=== PATIENT | female | born 1960 | race Caucasian/White ===

== ENCOUNTER 2018-07-23 03:40 | Inpatient (IN) | payer OTHER ==
[~2018-07-23] VITALS: Ht 147.3 cm; Wt 70.3 kg
[2018-07-23 03:43] VITALS: BP 170/89
[2018-07-23] MEDS ORDERED: LISINOPRIL10 MG PO ×2 (03:59→07:23)
[2018-07-23] MEDS ORDERED: SYNTHROID125 MC1 PO (04:00)
[2018-07-23] MEDS ORDERED: COREG CR10 MG PO (04:01)
[2018-07-23] MEDS ORDERED: SIMVASTATIN10 MG PO (04:02)
[2018-07-23] MEDS ORDERED: RANITIDINE 150150 M1 PO (04:03)
[2018-07-23 04:10] LABS: ABSOLUTE BASOPHILS 0.1 thou/uL (0.0-0.2); ABSOLUTE EOSINOPHILS 0.4 thou/uL (0.0-0.7); ABSOLUTE LYMPHOCYTES 2.4 thou/uL (0.8-5.3); ABSOLUTE MONOCYTES 1.8 thou/uL (0.0-1.2); ABSOLUTE NEUTROPHILS 10.5 thou/uL (1.6-8.1); BASOPHILS 0.6 %; EOSINOPHILS 2.4 %; HEMATOCRIT 37.7 % (37.0-47.0); HEMOGLOBIN 12.5 gm/dL (12.0-15.0); LYMPHOCYTES 15.8 %; MCH 32.7 pg (26.0-34.0); MCHC 33.1 g/dL (28.0-37.0); MCV 98.9 fL (80.0-100.0); MONOCYTES 11.9 %; MPV 7.4 fl. (7.2-11.1); NUCLEATED RBCS 0 /100WBC; PLATELET COUNT* 320 thou/uL (150-400); POLYS 69.3 %; RBC 3.81 mil/uL (4.20-5.00); RDW-CV 13.1 % (10.5-14.5); WBC 15.1 thou/uL (4.0-11.0)
[2018-07-23 04:19] LABS: CALCIUM 9.1 mg/dL (8.5-10.1); CREATININE 1.1 mg/dL (0.6-1.3); POTASSIUM 3.4 mmol/L (3.5-5.1)
[2018-07-23 04:24] LABS: ALBUMIN 3.1 g/dL (3.4-5.0); TOTAL BILIRUBIN 0.2 mg/dL (<0.1-1.0); TOTAL PROTEIN 7.6 g/dL (6.4-8.2)
[2018-07-23 05:27] LABS: URINE BILIRUBIN NEGATIVE (Negative); URINE BLOOD NEGATIVE (Negative); URINE CLARITY CLEAR; URINE COLOR YELLOW; URINE GLUCOSE-RANDOM NEGATIVE (Negative); URINE KETONES NEGATIVE (Negative); URINE LEUKOCYTES-REFLEX NEGATIVE (Negative); URINE NITRITE-REFLEX NEGATIVE (Negative); URINE PROTEIN NEGATIVE (Negative); URINE UROBILINOGEN 0.2 E.U./dl (0.2-1.0)
[2018-07-23] MEDS ORDERED: SYNTHROID112 MC1 PO (07:22)
[2018-07-23] MEDS ORDERED: ZANTAC 150MG T150 MG PO (07:23)
[2018-07-23] MEDS ORDERED: ZOCOR40 MG PO (07:23)
[2018-07-23] MEDS ORDERED: COREG25 MG PO (07:23)
[2018-07-23 07:50] VITALS: BP 169/80
[2018-07-23 07:53] VITALS: BP 170/89
[2018-07-23 16:38] VITALS: BP 151/71
[2018-07-23 20:20] VITALS: BP 139/75
[2018-07-24 04:15] LABS: HEMATOCRIT 32.7 % (37.0-47.0); HEMOGLOBIN 10.9 gm/dL (12.0-15.0); MCH 32.6 pg (26.0-34.0); MCHC 33.3 g/dL (28.0-37.0); MCV 97.8 fL (80.0-100.0); MPV 7.5 fl. (7.2-11.1); RBC 3.34 mil/uL (4.20-5.00); WBC 11.8 thou/uL (4.0-11.0)
[2018-07-24 04:29] LABS: CALCIUM 8.6 mg/dL (8.5-10.1); MAGNESIUM 1.9 mg/dL (1.8-2.4); POTASSIUM 4.1 mmol/L (3.5-5.1)
[2018-07-24 07:30] VITALS: BP 141/55
[2018-07-24] MEDS ORDERED: NORCO 5-325 TA1 EACH PO (08:35)
[2018-07-24] MEDS ORDERED: COLACE100 MG PO (08:35)
[2018-07-24] MEDS ORDERED: PHENERGAN 25 MG25 M1 PO (08:35)
[2018-07-24] MEDS ORDERED: FLAGYL500 M1 PO (08:35)
[2018-07-24] MEDS ORDERED: CEFDINIR300 MG PO (08:35)
[2018-07-24] MEDS ORDERED: CEFUROXIME500 MG PO (08:55)
[2018-07-24] MEDS ORDERED: VANCOMYCIN HCL125 MG PO (08:55)
[2018-07-24 10:44] VITALS: BP 141/55
== END 2018-07-24 13:20 | disposition home or self-care (01) | DRG 872 ==
LOC: M.ERS 03:40 → M.TBA-ER 06:22 → M.ORTHSURG 06:22
PROVIDERS: Emergency Medicine Emergency Medical Services; Internal Medicine; ADMIT Internal Medicine
DX: A41.9 Sepsis, unspecified organism (principal); K63.2 Fistula of intestine; K57.30 Diverticulosis of large intestine without perforation or abscess without bleeding; I10 Essential (primary) hypertension; E78.5 Hyperlipidemia, unspecified; E87.6 Hypokalemia; E03.9 Hypothyroidism, unspecified; F17.210 Nicotine dependence, cigarettes, uncomplicated; Z79.899 Other long term (current) drug therapy; Z88.5 Allergy status to narcotic agent; Z88.2 Allergy status to sulfonamides

== ENCOUNTER 2018-10-06 20:23 | Emergency (ER) | payer OTHER ==
[~2018-10-06] VITALS: Ht 149.9 cm; Wt 68.0 kg
[~2018-10-06 20:23] MED LIST: CEFDINIR300 MG PO; CEFUROXIME500 MG PO; COLACE100 MG PO; COREG CR10 MG PO; COREG25 MG PO; FLAGYL500 M1 PO; LISINOPRIL10 MG PO; NORCO 5-325 TA1 EACH PO; PHENERGAN 25 MG25 M1 PO; RANITIDINE 150150 M1 PO; SIMVASTATIN10 MG PO; SYNTHROID112 MC1 PO; SYNTHROID125 MC1 PO; VANCOMYCIN HCL125 MG PO; ZANTAC 150MG T150 MG PO; ZOCOR40 MG PO
[2018-10-06] MEDS ORDERED: ATORVASTATIN (20:40)
[2018-10-06 21:24] LABS: INFLUENZA A ANTIGEN None Detected (None Detect); INFLUENZA B ANTIGEN None Detected (None Detect)
[2018-10-06] MEDS ORDERED: PREDNISONE50 MG PO (21:38)
[2018-10-06] MEDS ORDERED: PROAIR HFA8.5 GM INH (21:38)
[2018-10-06 21:59] VITALS: BP 185/91
== END 2018-10-06 21:59 | disposition home or self-care (01) ==
LOC: M.ERS 20:23
PROVIDERS: Emergency Medicine
DX: J40 Bronchitis, not specified as acute or chronic (principal); R04.0 Epistaxis; F17.210 Nicotine dependence, cigarettes, uncomplicated; I10 Essential (primary) hypertension; E78.5 Hyperlipidemia, unspecified; Z88.5 Allergy status to narcotic agent; Z88.2 Allergy status to sulfonamides

== ENCOUNTER 2020-03-13 08:43 | Emergency (ER) | payer BC ==
[~2020-03-13] VITALS: Ht 149.9 cm; Wt 64.4 kg
[~2020-03-13 08:43] MED LIST changes: +ATORVASTATIN; +PREDNISONE50 MG PO; +PROAIR HFA8.5 GM INH
[2020-03-13] MEDS ORDERED: LIPITOR10 MG PO (09:01)
[2020-03-13] MEDS ORDERED: ACID CONTROLLER20 MG PO (09:02)
[2020-03-13 09:12] LABS: URINE BILIRUBIN NEGATIVE (Negative); URINE BLOOD NEGATIVE (Negative); URINE CLARITY CLEAR; URINE COLOR YELLOW; URINE GLUCOSE-RANDOM NEGATIVE (Negative); URINE KETONES NEGATIVE (Negative); URINE LEUKOCYTES-REFLEX NEGATIVE (Negative); URINE NITRITE-REFLEX NEGATIVE (Negative); URINE PROTEIN NEGATIVE (Negative); URINE SPECIFIC GRAVITY >= 1.030 (1.005-1.030); URINE UROBILINOGEN 0.2 E.U./dl (0.2-1.0)
[2020-03-13 09:21] LABS: CALCIUM 9.1 mg/dL (8.5-10.1); POTASSIUM 4.3 mmol/L (3.5-5.1)
[2020-03-13 09:23] LABS: APTT 23.8 Seconds (25.0-31.3); INR 0.9; PROTIME 9.8 Seconds (9.20-11.50)
[2020-03-13 09:34] LABS: TOTAL BILIRUBIN 0.2 mg/dL (<0.1-1.0); TOTAL PROTEIN 7.4 g/dL (6.4-8.2)
[2020-03-13 09:35] LABS: ABSOLUTE BASOPHILS 0.1 thou/uL (0.0-0.2); ABSOLUTE EOSINOPHILS 0.4 thou/uL (0.0-0.7); ABSOLUTE LYMPHOCYTES 2.1 thou/uL (0.8-5.3); ABSOLUTE NEUTROPHILS 5.8 thou/uL (1.6-8.1); BASOPHILS 0.7 %; EOSINOPHILS 4.3 %; HEMATOCRIT 42.5 % (37.0-47.0); HEMOGLOBIN 15.1 gm/dL (12.0-15.0); LYMPHOCYTES 22.4 %; MCH 35.3 pg (26.0-34.0); MCHC 35.6 g/dL (28.0-37.0); MCV 99.2 fL (80.0-100.0); MONOCYTES 10.7 %; MPV 8.4 fl. (7.2-11.1); NUCLEATED RBCS 0 /100WBC; PLATELET COUNT* 240 thou/uL (150-400); POLYS 61.9 %; RBC 4.29 mil/uL (4.20-5.00); RDW-CV 13.2 % (10.5-14.5); WBC 9.4 thou/uL (4.0-11.0)
[2020-03-13 09:55] VITALS: BP 145/60
--- NOTE | 2020-03-13 16:19 | EKG ---
[place] [address] ELECTROCARDIOGRAM REPORT Name: MARIELY VIDES Room: [facility]#: [id number] Admission: 03/13/20 Attend Phys: Discharge: 03/13/20 Date of : 62 Date of Service: 03/13/20916 Report #: [id number] THIS REPORT FOR: //name// [facility] ED Test Date: 2020-03-13 Test Time: 09:17:17 Pat Name: MARIELY VIDES Department: Room: Gender: F Faculty Criminal Justice: TDS : 1960 Requested By: Brant Oconnell Order Number: [id number] MD: Dawit Boyce Measurements Intervals [place] Rate: 60 P: 50 [place]: 147 QRS: 69 QRSD: 99 T: 43 QT: 462 QTc: 462 Interpretive Statements Sinus rhythm Baseline wander in lead(s) V6 No previous ECG available for comparison Electronically Signed On 03-13-2020 16:19:12 CDT by Dawit Boyce [email or web address] <ELECTRONICALLY SIGNED> By: Dawit Boyce MD, [facility] 03/13/20 1619 6 6 Dawit Boyce MD, [facility] /EPI
== END 2020-03-13 09:56 | disposition home or self-care (01) ==
LOC: M.ERS 08:43
PROVIDERS: Family Medicine
DX: R53.1 Weakness (principal); I10 Essential (primary) hypertension; E78.5 Hyperlipidemia, unspecified; F17.210 Nicotine dependence, cigarettes, uncomplicated; Z88.5 Allergy status to narcotic agent; Z88.2 Allergy status to sulfonamides

== ENCOUNTER 2021-09-08 05:53 | Emergency (ER) | payer OTHER ==
[~2021-09-08] VITALS: Ht 149.9 cm; Wt 65.8 kg
[~2021-09-08 05:53] MED LIST changes: +ACID CONTROLLER20 MG PO; +LIPITOR10 MG PO
[2021-09-08 06:39] LABS: ABSOLUTE LYMPHOCYTES 1.2 thou/uL (0.8-5.3); ABSOLUTE MONOCYTES 0.8 thou/uL (0.0-1.2); ABSOLUTE NEUTROPHILS 3.7 thou/uL (1.6-8.1); BASOPHILS 0.2 %; EOSINOPHILS 0.4 %; HEMATOCRIT 39.5 % (37.0-47.0); HEMOGLOBIN 13.5 gm/dL (12.0-15.0); MCH 33.8 pg (26.0-34.0); MCHC 34.1 g/dL (28.0-37.0); MCV 99.1 fL (80.0-100.0); MONOCYTES 14.7 %; MPV 7.4 fl. (7.2-11.1); NUCLEATED RBCS 0 /100WBC; PLATELET COUNT* 253 thou/uL (150-400); POLYS 63.7 %; RBC 3.98 mil/uL (4.20-5.00); RDW-CV 12.8 % (10.5-14.5); WBC 5.8 thou/uL (4.0-11.0)
[2021-09-08 06:45] LABS: CALCIUM 8.5 mg/dL (8.5-10.1); CREATININE 1.4 mg/dL (0.6-1.3); POTASSIUM 3.3 mmol/L (3.5-5.1)
[2021-09-08 06:49] LABS: ALBUMIN 3.3 g/dL (3.4-5.0); MAGNESIUM 1.6 mg/dL (1.8-2.4); TOTAL BILIRUBIN 0.1 mg/dL (<0.1-1.0); TOTAL PROTEIN 6.7 g/dL (6.4-8.2)
[2021-09-08 07:34] LABS: URINE BLOOD NEGATIVE (Negative); URINE CLARITY CLEAR; URINE COLOR YELLOW; URINE GLUCOSE-RANDOM NEGATIVE (Negative); URINE KETONES NEGATIVE (Negative); URINE LEUKOCYTES-REFLEX NEGATIVE (Negative); URINE NITRITE-REFLEX NEGATIVE (Negative); URINE PROTEIN TRACE (Negative); URINE SPECIFIC GRAVITY 1.025 (1.005-1.030); URINE UROBILINOGEN 0.2 E.U./dl (0.2-1.0)
[2021-09-08 07:56] LABS: URINE BILIRUBIN 1+ (Negative)
[2021-09-08 07:58] LABS: CASTS None Seen /LPF (None Seen); CRYSTALS None Seen /LPF (None Seen); ICTOTEST (BILI CONFIRMATORY) Negative (Negative); SQUAMOUS 0-3 Few /LPF (0-3); URINE RBC 0-2 Rare /HPF (0-2); URINE WBC-REFLEX None Seen /HPF (0-5)
[2021-09-08] MEDS ORDERED: VENTOLIN HFA 1818 GM INH (08:01)
[2021-09-08] MEDS ORDERED: PREDNISONE50 MG PO (08:01)
[2021-09-08] MEDS ORDERED: ZOFRAN ODT4 MG DISSOLVE (08:01)
[2021-09-08 08:14] VITALS: BP 110/56
== END 2021-09-08 08:15 | disposition home or self-care (01) ==
LOC: M.ERS 05:53
PROVIDERS: Emergency Medicine
DX: U07.1 COVID-19 (principal); R11.2 Nausea with vomiting, unspecified; I10 Essential (primary) hypertension; E78.5 Hyperlipidemia, unspecified; F17.210 Nicotine dependence, cigarettes, uncomplicated; Z79.899 Other long term (current) drug therapy; Z88.5 Allergy status to narcotic agent; Z88.2 Allergy status to sulfonamides

== ENCOUNTER 2021-09-10 11:41 | Emergency (ER) | payer OTHER ==
[~2021-09-10] VITALS: Ht 149.9 cm; Wt 65.8 kg
[~2021-09-10 11:41] MED LIST changes: +VENTOLIN HFA 1818 GM INH; +ZOFRAN ODT4 MG DISSOLVE
[2021-09-10] MEDS ORDERED: PULMICORT FLEX90 MCG INH (12:14)
[2021-09-10] MEDS ORDERED: DEXAMETHASONE 44 M1 PO (12:14)
[2021-09-10] MEDS ORDERED: ZITHROMAX250 MG PO (12:14)
[2021-09-10 12:22] VITALS: BP 135/70
== END 2021-09-10 12:25 | disposition home or self-care (01) ==
LOC: M.ERS 11:41
DX: U07.1 COVID-19 (principal); J40 Bronchitis, not specified as acute or chronic; R19.7 Diarrhea, unspecified; I10 Essential (primary) hypertension; E78.5 Hyperlipidemia, unspecified; F17.210 Nicotine dependence, cigarettes, uncomplicated; Z98.890 Other specified postprocedural states; Z79.899 Other long term (current) drug therapy; Z88.5 Allergy status to narcotic agent; Z88.2 Allergy status to sulfonamides